=== PATIENT | male | born 1960 | race Caucasian/White ===

== ENCOUNTER 2024-09-19 06:44 | Day surgery (SDC) | payer OTHER ==
[~2024-09-19] VITALS: Ht 177.8 cm; Wt 91.2 kg
[~2024-09-19 06:44] MED LIST: ALBU90OI INH; Acetaminophen325 M1 PO; Cyclobenzaprine5 MG PO; LISI20 PO; LOSA25 PO; Lidocaine 2%-Epineph 1:100000 20 ML MDV ONE
[2024-09-19 07:11] VITALS: BP 150/77
[2024-09-19 08:45] VITALS: BP 150/87
--- NOTE | 2024-09-19 08:49 | NUR ---
PT TOLERATED LINQ IMPLANT WELL. LINQ SITE SOFT NON-TENDER WITH NO HEMATOMA, NO BLEEDING WITH INTACT DRESSING IN PLACE. DISCHARGE INSTRUCTIONS REVIEWED ALL QUESTIONS ANSWERED. LUIS MANUEL FROM [employer] PROVIDED EDUCATION TO PT.
--- NOTE | 2024-09-19 08:59 | NUR ---
NO CHANGES TO LINQ SITE; PT AMBULATED OUT.
== END 2024-09-19 09:00 | disposition home or self-care (01) ==
LOC: MHTC 06:44
DX: I42.8 Other cardiomyopathies (principal); I44.7 Left bundle-branch block, unspecified; R00.1 Bradycardia, unspecified; I13.0 Hypertensive heart and chronic kidney disease with heart failure and stage 1 through stage 4 chronic kidney disease, or unspecified chronic kidney disease; N18.9 Chronic kidney disease, unspecified; I50.20 Unspecified systolic (congestive) heart failure; Z79.899 Other long term (current) drug therapy; Z88.0 Allergy status to penicillin
CPT/HCPCS: 33285; C1764